=== PATIENT | male | born 1985 | race Caucasian/White ===

== ENCOUNTER 2018-08-13 18:11 | Emergency (ER) | payer SELFPAY ==
--- NOTE | 2018-08-13 18:26 | EDM.PDOC ---
ED HPI GENERAL MEDICAL PROBLEM - General Chief Complaint: ENT Problem Stated Complaint: SORE THROAT Time Seen by Provider: 08/13/18 18:24 Source of Information: Reports: Patient History Limitations: Reports: No Limitations - History of Present Illness INITIAL COMMENTS - FREE TEXT/NARRATIVE: HISTORY AND PHYSICAL: History of present illness: Patient is a 32-year-old male who presents to the emergency room with complaints of sore throat 2 weeks. He states last week he was evaluated at a walk-in clinic and he was given a prescription for Z-Maynor and prednisone. He states he completed these medications and felt no improvement of his symptoms. Patient denies any fever, chills, headache, change in vision, syncope or near syncope. Denies any chest pain, back pain, shortness of breath or cough. Denies any abdominal pain, nausea, vomiting, diarrhea, constipation or dysuria. Has not noted any blood in urine or stool. Patient has been eating and drinking appropriately. Review of systems: As per history of present illness and below otherwise all systems reviewed and negative. Past medical history: As per history of present illness and as reviewed below otherwise noncontributory. Surgical history: As per history of present illness and as reviewed below otherwise noncontributory. Social history: See social history for further information Family history: As per history of present illness and as reviewed below otherwise noncontributory. Physical exam: General: Well-developed and well-nourished 32-year-old male. Alert and oriented. Nontoxic appearing and in no acute distress. HEENT: Atraumatic, normocephalic, pupils equal and reactive bilaterally, negative for conjunctival pallor or scleral icterus, mucous membranes moist, TMs normal bilaterally, throat erythematous without exudate, no pillar shifting , neck supple, nontender, trachea midline. No drooling or trismus noted. No meningeal signs. No hot potato voice noted. Lungs: Clear to auscultation, breath sounds equal bilaterally, chest nontender. Heart: S1S2, regular rate and rhythm without overt murmur Abdomen: Soft, nondistended, nontender. Negative for masses or hepatosplenomegaly. Negative for costovertebral tenderness. Pelvis: Stable nontender. Genitourinary: Deferred. Rectal: Deferred. Skin: Intact, warm, dry. No lesions or rashes noted. Extremities: Atraumatic, moves all extremities per self without difficulty or deficits, negative for cords or calf pain. Neurovascular unremarkable. Neuro: Awake, alert, oriented. Cranial nerves II through XII unremarkable. Cerebellum unremarkable. Motor and sensory unremarkable throughout. Exam nonfocal. Notes: Positive for strep. Will treat with Pen VK and pain medication. Supportive care measures were reviewed and discussed. Voices understanding and is agreeable to plan of care. Denies any further questions or concerns at this time. Diagnostics: Strep Therapeutics: None Prescription: Pen VK and Phenergan with Codeine Impression: Strep pharyngitis Plan: 1. Take your medication as directed. 2. Warm Salt water gargles (rinse and spit) 3-4 x daily. Please get a new tooth brush after completion of your medication 3. Tylenol and or ibuprofen as needed for pain management. 4. Follow-up with your primary care provider in the next 1-2 days. Return to the ED as needed and as discussed. Definitive disposition and diagnosis as appropriate pending reevaluation and review of above. throat Pain Score (Numeric/FACES): 7 - Related Data Allergies Allergy/AdvReac Type Severity Reaction Status Date / Time No Known Allergies Allergy Verified 08/13/18 18:30 Home Meds: Home Meds Citalopram Hydrobromide [Celexa] 20 mg PO DAILY 08/13/18 [History] Rosuvastatin [Crestor] 5 mg PO DAILY 08/13/18 [History] ED ROS ENT - Review of Systems Review Of Systems: ROS reveals no pertinent complaints other than HPI. ED EXAM, ENT - Physical Exam Exam: See Below (See dictation) Course - Vital Signs Last Recorded V/S: Last Vital Signs Temp 98.1 F 08/13/18 18:27 Pulse 91 08/13/18 18:27 Resp 20 08/13/18 18:27 BP 131/88 08/13/18 18:27 Pulse Ox 97 08/13/18 18:27 Departure - Departure Time of Disposition: 19:09 Disposition: Home, Self-Care 01 Clinical Impression: Strep pharyngitis - Discharge Information Instructions: Strep Throat, [id number] Referrals: PCP,Unknown [Primary Care Provider] - Forms: ED Department Discharge Additional Instructions: The following information is given to patients seen in the emergency department who are being discharged to home. This information is to outline your options for follow-up care. We provide all patients seen in our emergency department with a follow-up referral. The need for follow-up, as well as the timing and circumstances, are variable depending upon the specifics of your emergency department visit. If you don't have a primary care physician on staff, we will provide you with a referral. We always advise you to contact your personal physician following an emergency department visit to inform them of the circumstance of the visit and for follow-up with them and/or the need for any referrals to a consulting specialist. The emergency department will also refer you to a specialist when appropriate. This referral assures that you have the opportunity for follow-up care with a specialist. All of these measure are taken in an effort to provide you with optimal care, which includes your follow-up. Under all circumstances we always encourage you to contact your private physician who remains a resource for coordinating your care. When calling for follow-up care, please make the office aware that this follow-up is from your recent emergency room visit. If for any reason you are refused follow-up, please contact the [facility] Emergency Department at and asked to speak to the emergency department charge nurse. [facility] [address] [place] [address] [id number] 1. Take your medication as directed. 2. Warm Salt water gargles (rinse and spit) 3-4 x daily. Please get a new tooth brush after completion of your medication 3. Tylenol and or ibuprofen as needed for pain management. 4. Follow-up with your primary care provider in the next 1-2 days. Return to the ED as needed and as discussed.
== END 2018-08-13 19:17 | disposition home or self-care (01) ==
LOC: MW.ED 18:11
DX: J02.0 Streptococcal pharyngitis (principal); Z79.899 Other long term (current) drug therapy
CPT/HCPCS: 87880-QW; 99283